=== PATIENT | female | born 1990 | race Caucasian/White ===

== ENCOUNTER 2017-10-22 18:04 | Emergency (ER) | payer SELFPAY ==
[~2017-10-22] VITALS: Ht 162.6 cm; Wt 62.6 kg
[2017-10-22 18:47] VITALS: BP 104/43
--- NOTE | 2017-10-22 18:57 | NUR ---
PT PRESENTS TO ER S/P FALL THIS AM W/C/O HEADACHE.PT STATES SHE WAS AT HER [facility] [facility]PT THIS AM AND FAINTED, HITTING THE BACK OF HER HEAD, CAUSING IMMEDIATE PAIN. PT STATES SHE DECIDED TO GO TO WORK, BUT THE PAIN PERSISTED, AND CAME TO ER FOR EVALUATION.DENIES N/V/D; SKIN IS PINK/WARM/DRY; AAOX4 WITH EVEN AND STEADY GAIT; LUNGS CLEAR BL; HR EVEN AND REGULAR; PT DENIES ANY FEVER, CP, SOB, OR COUGH AT THIS TIME; PATIENT STATES PAIN OF 8/10 AT THIS TIME;PATIENT POSITIONED FOR COMFORT; HOB ELEVATED; BEDRAILS UP X2; BED DOWN. ER MD MADE AWARE OF PT STATUS.
--- NOTE | 2017-10-22 19:14 | NUR ---
Pt report given to RUPERT VALDEZ. Transfer of care at this time.
--- NOTE | 2017-10-22 19:30 | NUR ---
Rafaela bentley in ED - 10/22/[address] at [address] Baca evaluating patient at bedside.
[2017-10-22 21:01] LABS: BASOPHILS # (AUTO) 0.4 K/uL (0.00-0.22); BASOPHILS % (AUTO) 4.2 % (0.0-2.0); EOSINOPHILS # (AUTO) 0.1 K/uL (0-0.4); EOSINOPHILS % (AUTO) 1.5 % (0.0-4.0); HEMATOCRIT 37.9 % (36-48); HEMOGLOBIN 12.7 g/dL (12.0-16.0); LYMPHOCYTES # (AUTO) 2.9 K/uL (2.5-16.5); LYMPHOCYTES % (AUTO) 29.9 % (20.5-51.1); MEAN CORPUSCULAR HEMOGLOBIN 30 pg (27-31); MEAN CORPUSCULAR HGB CONC 34 g/dL (33-37); MEAN CORPUSCULAR VOLUME 91 fL (80-94); MONOCYTES # (AUTO) 0.7 K/uL (0.8-1.0); MONOCYTES % (AUTO) 7.5 % (1.7-9.3); NEUTROPHILS # (AUTO) 5.5 K/uL (1.8-7.7); NEUTROPHILS % (AUTO) 56.9 % (42.2-75.2); PLATELET COUNT (AUTO) 243 K/uL (140-450); RED BLOOD CELL COUNT(AUTO) 4.18 MIL/uL (4.20-5.40); RED CELL DISTRIBUTION WIDTH 12.5 % (11.6-13.7); WHITE BLOOD COUNT (AUTO) 9.6 K/uL (4.8-10.8)
[2017-10-22 21:04] LABS: ANION GAP 11.1 (8-16); CARBON DIOXIDE 28.8 mmol/L (21-32); POTASSIUM 3.9 mmol/L (3.5-5.1)
[2017-10-22 21:09] LABS: ALBUMIN 3.5 g/dL (3.4-5.0); TOTAL BILIRUBIN 0.5 mg/dL (0.0-1.0)
[2017-10-22] MEDS ORDERED: ACETAMINOPHEN EXTRA STRENGTH 500 MG TAB PO ONE (21:25)
[2017-10-22 21:37] LABS: CREATINE KINASE MB 0.3 ng/mL (0-3.6)
[2017-10-22 21:50] VITALS: BP 128/72
== END 2017-10-22 21:50 | disposition home or self-care (01) ==
LOC: MED 18:04
DX: S09.90XA Unspecified injury of head, initial encounter (principal); R55 Syncope and collapse; W22.01XA Walked into wall, initial encounter; Y93.89 Activity, other specified; Y92.89 Other specified places as the place of occurrence of the external cause; Y99.8 Other external cause status
CPT/HCPCS: 36415; 70450; 71010; 80053; 82550; 82553; 84484; 84703; 85025; 93005; 99285; Q0092

== ENCOUNTER 2019-05-23 10:30 | Emergency (ER) | payer OTHER ==
[~2019-05-23] VITALS: Ht 165.1 cm; Wt 68.0 kg
--- NOTE | 2019-05-23 10:33 | NUR ---
Patient ambulated to bed 4. RN evaluating patient at bedside.
[2019-05-23 10:40] VITALS: BP 123/60
--- NOTE | 2019-05-23 10:40 | NUR ---
PT C/O OF SOB AND THROBBING HEADACHE FOR 2 DAYS. PER PT SOB COMES AND GOES FOR 2 YEARS. PT STATES BEING BUT HAVEN'T SEEN THE OB YET, LAST PERIOD WAS ON 03/26/2019. REPORTS MORNING SICKNESS; DENIES COUGH, CP, DIARRHEA. DENIES TRAUMA OR INJURY TO CHEST OR HEAD. DENIES PAST MEDICAL HX OF ASTHMA OR PULMONARY DISEASE. SKIN IS PINK/WARM/DRY; AAOX4 WITH EVEN AND STEADY GAIT; LUNGS CLEAR BL; HR EVEN AND REGULAR; PT DENIES ANY FEVER, CP, SOB, OR COUGH AT THIS TIME; PATIENT STATES HEADACHE OF 7/10 AT THIS TIME; VSS, BUT ANXIOUS; PATIENT POSITIONED FOR COMFORT; HOB ELEVATED; BEDRAILS UP X1; BED DOWN. ER MD MADE AWARE OF PT STATUS. PT'S OXYGEN SATS IS 100% AT THIS TIME AND PT REFUSES USING OXYGEN VIA NASAL CANNULA.
--- NOTE | 2019-05-23 10:57 | NUR ---
Dr. Brandon evaluating patient at bedside.
[2019-05-23 11:09] VITALS: BP 122/60
--- NOTE | 2019-05-23 11:10 | NUR ---
Patient discharged with v/s stable. Written and verbal after care instructions given and explained. Pt's SOB has been improved. Patient alert, oriented and verbalized understanding of instructions. Ambulatory with steady gait. All questions addressed prior to discharge. ID band removed. Patient advised to follow up with PMD. Rx of Benadryl given. Patient educated on indication of medication including possible reaction and side effects. Opportunity to ask questions provided and answered.
[2019-05-23] MEDS ORDERED: CARV6.252 PO (11:29)
[2019-05-23] MEDS ORDERED: LISI-420 PO (11:30)
== END 2019-05-23 11:10 | disposition home or self-care (01) ==
LOC: MED 10:30
DX: O26.891 Other specified pregnancy related conditions, first trimester (principal); O21.8 Other vomiting complicating pregnancy; R06.02 Shortness of breath; F41.9 Anxiety disorder, unspecified
CPT/HCPCS: 81002; 81025; 82948; 99283